=== PATIENT | male | born 1945 | race Caucasian/White ===

== ENCOUNTER 2018-06-26 05:26 | Inpatient (IN) ==
[2018-06-26] MEDS ORDERED: Chlorhexidine 4% Topical 120 APPLIC/120 ML Bottle TOPICAL SCH (06:00)
[2018-06-26] MEDS ORDERED: ceFAZolin 2 GM Premix Inj 2 GM/50 ML PIGGYBACK IV.SIG SCH (06:00)
[2018-06-26] MEDS ORDERED: Chlorhexidine Gluconate 2% 1 Pack (2 Cloths) TOPICAL ONE (06:07)
[2018-06-26] MEDS ORDERED: Sodium Chlor 0.9% Inj 500 ML IV.SIG SCH (07:00)
[2018-06-26] MEDS ORDERED: ceFAZolin 1 GM Premix Inj 2 GM/100 ML PIGGYBACK IV.SIG ONE (07:20)
[2018-06-26] MEDS ORDERED: Bupivacaine/Epinephrine Inj 0.25% 50 ML Vial ONE (07:47)
[2018-06-26] MEDS ORDERED: Gelatin 12 MM/7 MM Topical Foam ONE (08:33)
[2018-06-26] MEDS ORDERED: Betamethasone Sod Phos/Acetate Inj 30 MG/5 ML Vial IM ONE (08:33)
--- NOTE | 2018-06-26 08:55 | P.OP ---
- Preoperative Diagnosis (1) Lumbar spinal stenosis Preoperative Diagnosis: Lumbar spinal stenosis L4-5, left. Herniated nucleus pulposus L4-5, left, extruded. Left L5 radiculopathy Date of procedure: 06/26/18 Procedure: Lumbar laminectomy from the left L4, L5, left lateral recess decompression, resection herniated nucleus pulposus. Use of dilation port and microscope Anesthesia: GETA, local Surgeon: Glen Fernandez MD Education Analyst: Ewelina Solorzano PA-C Operation and Findings: EBL: 25 cc INDICATION: This patient is a 72-year-old male with significant radiating left leg pain with weakness. Investigative studies shows evidence of a high-grade lateral recess stenosis L4-5. There is a disc herniation at that level extending above the disc space. Despite conservative care, the patient is painful and symptomatic This patient presents for surgical treatment NOTE: Ewelina Solorzano PA-C was present for the entire surgical procedure as my first aid teacher. In my medical opinion her skill and care was necessary for the proper management of this patient. PROCEDURE: The patient was brought to the operating room and anesthetized in the supine position. The patient was rolled to a prone position on a [place] frame on a Kael table. All pressure points were protected in the back was scrubbed with alcohol followed by Hibiclens followed by ChloraPrep and draped sterilely. A timeout was done and antibiotics were given. AP and lateral radiographic images were used to identify the proper levels and perform skin markings. We started from the left side at the L4-5 level. A paramedian incision was made and an off-midline fascial incision was made. A dilating system was placed down to the interlaminar space and held provisionally to the side of the table. The microscope was brought into the field. A high-speed bur under the microscope was used to perform a partial bilateral laminectomy from that side. A lateral recess decompression on the left side was accomplished using straight and angled Kerrison punches. A partial medial facetectomy was accomplished. The crossing and exiting nerve roots were completely decompressed. There is evidence of an extruded disc herniation above the disc space. Multiple fragments were removed. There was significant L5 nerve root compression and even some exiting left L4 nerve root compression. The decompression was very satisfactory The wound was irrigated copiously. A small piece of Gelfoam with Celestone was placed into the epidural space. Hemostasis was controlled. The deep fascia was approximated with interrupted 0 Vicryl suture subcutaneous suture with 2-0 Vicryl suture and skin with running intradermal 3-0 Vicryl followed by Dermabond. A field block with local anesthesia was utilized. A sterile dressing was applied. The sponge count and needle counts and instrument counts were all correct. The patient tolerated the procedure well as taken to the recovery room in satisfactory condition. FINDINGS: There is evidence of an extruded disc herniation and a high-grade stenosis to the left side at L4-5. The decompression was very satisfactory. No complication was appreciated.
[2018-06-26] MEDS ORDERED: fentaNYL Citrate Inj 100 MCG/2 ML Ampul ONE (09:29)
[2018-06-26] MEDS ORDERED: Morphine Sulfate Inj 2 MG/ML Vial IV.PUSH PRN (09:48)
[2018-06-26 11:01] VITALS: RESP 16
[2018-06-26 11:32] VITALS: BP 135/70; PULSE 84; TEMP 97.8; O2SAT 96
--- NOTE | 2018-06-26 15:47 | XR ---
EXAM DATE: 06/26/2018 3:22 PM EST AGE/SEX: 72 years / Male INDICATIONS: L4-5 laminectomy loc. CLINICAL DATA: This is the patient's initial encounter. Patient reports that signs and symptoms have been present for 1 day and indicates a pain score of Nonresponsive. MEDICAL/SURGICAL HISTORY: Non-responsive. Non-responsive. COMPARISON: [facility], MR LUMBAR SPINE W/O CONTRAST, 05/08/2018. . FINDINGS: Single lateral view of the inferior lumbar spine obtained in the operating room documents instrument overlying the posterior elements at L4-L5. CONCLUSION: Instruments overlie the posterior elements at L4-L5. Electronically signed by: Kelvin Callahan MD Board Certified Radiologist 06/26/2018 3:46 PM EST
== END 2018-06-26 11:29 | disposition home or self-care (01) ==
LOC: HSDI 05:26
PROVIDERS: ADMIT Orthopaedic Surgery Orthopaedic Surgery of the Spine; ATTEND Orthopaedic Surgery Orthopaedic Surgery of the Spine